=== PATIENT | female | born 1965 | race Caucasian/White ===

== ENCOUNTER 2017-04-11 10:14 | Emergency (ER) | payer BC ==
[~2017-04-11] VITALS: Ht 165.1 cm; Wt 97.5 kg
[2017-04-11 10:20] VITALS: BP 134/83; PULSE 73; RESP 18; TEMP 97; O2SAT 98
--- NOTE | 2017-04-11 10:25 | NUR ---
Patient to ER bed 8 to gown for evaluation. Side rails up. Report given to Devorah RAUSCH.
--- NOTE | 2017-04-11 10:33 | NUR ---
Received Pt in bed 8. Pt c/o of dizziness and nauseous x3 days, vomiting x1. Pt stated she has a history of vertigo but states this is much worst. Pt states when the room is spinning when she has her eyes closed, unable to balance herself, sweating, ringing in her ears. Pt did not take any medication to treat symptoms.
--- NOTE | 2017-04-11 10:50 | NUR ---
Dr. Montgomery at the bedside evaluating Pt. Currently awaiting new orders.
[2017-04-11] MEDS ORDERED: ONDANSETRON HCL 4 MG/2 ML VIAL IVP ONE (11:00)
[2017-04-11] MEDS ORDERED: LORazepam 2 MG/ML VIAL (FOR ER USE) IVP ONE (11:00)
[2017-04-11] MEDS ORDERED: MECLIZINE HCL 25 MG TABLET (ANITVERT) PO ONE (11:00)
[2017-04-11 11:32] LABS: BASOPHILS % (AUTO) 0.3 % (0.0-2.0); EOSINOPHILS # (AUTO) 0.1 K/uL (0.0-0.4); EOSINOPHILS % (AUTO) 0.8 % (0.0-4.0); HEMATOCRIT 45.2 % (36-48); HEMOGLOBIN 14.2 g/dL (12.0-16.0); LYMPHOCYTES # (AUTO) 3.6 K/uL (1.0-5.5); LYMPHOCYTES % (AUTO) 38.4 % (20.5-51.5); MEAN CORPUSCULAR HEMOGLOBIN 28 pg (27-31); MEAN CORPUSCULAR HGB CONC 31 % (32-36); MEAN CORPUSCULAR VOLUME 88 fL (79.0-98.0); MONOCYTES # (AUTO) 0.7 K/uL (0.0-1.0); MONOCYTES % (AUTO) 7.1 % (1.7-9.3); NEUTROPHILS % (AUTO) 53.4 % (40.0-70.0); PLATELET COUNT (AUTO) 251 K/uL (130-430); RED BLOOD CELL COUNT(AUTO) 5.16 MIL/uL (4.2-6.2); RED CELL DISTRIBUTION WIDTH 13.1 % (9.0-15.0); WHITE BLOOD COUNT (AUTO) 9.4 K/uL (4.8-10.8)
[2017-04-11 11:37] LABS: ANION GAP 4 (5-15); CALCIUM 10.2 mg/dL (8.4-11.0); CHLORIDE 104 mmol/L (98-107); CREATININE 0.93 mg/dL (0.55-1.30); GLUCOSE 124 mg/dL (70-99); POTASSIUM 4.1 mmol/L (3.5-5.1); SODIUM SERUM 141 mmol/L (136-145); UREA NITROGEN, BLOOD 11 mg/dL (8-21)
--- NOTE | 2017-04-11 11:38 | NUR ---
Pt transported to radiology via [facility]
[2017-04-11 11:44] LABS: PROTHROMBIN TIME 10.6 SECS (9.5-12.5)
[2017-04-11 11:47] LABS: GFR AFRICAN AMERICAN 81 mL/min (>90)
[2017-04-11 11:54] LABS: ALANINE AMINOTRANSFERASE 34 U/L (12-78); ALBUMIN 4.1 g/dL (3.4-4.8); ALCOHOL, BLOOD < 3 mg/dL (<10); ASPARTATE AMINOTRANSFERASE 20 U/L (10-37); FREE T4 (FREE THYROXINE) 0.7 ng/dL (0.6-1.6); TOTAL BILIRUBIN 0.4 mg/dL (0.0-1.0); TOTAL PROTEIN, SERUM 8.2 g/dL (6.4-8.3)
--- NOTE | 2017-04-11 12:28 | NUR ---
Pt awake. Pt stated dizziness is much better after medication adminstrationg. Pt requesting to use the bathroom. Assisted Pt to the bathroom via wheelchair. Informed Pt to push the call light if Pt needs assistance with anything. Pt verbalized understading.
[2017-04-11 12:46] LABS: BILIRUBIN,URINE NEGATIVE (NEGATIVE); BLOOD, URINE NEGATIVE (NEGATIVE); CLARITY/URINE CLEAR (CLEAR); COLOR,URINE YELLOW (YELLOW); GLUCOSE,URINE NEGATIVE (NEGATIVE); KETONES,URINE NEGATIVE (NEGATIVE); LEUKOCYTE ESTERASE ,URINE NEGATIVE (NEGATIVE); NITRITE, URINE NEGATIVE (NEGATIVE); PH,URINE 6.5 (5.0-8.0); PROTEIN URINE NEGATIVE (NEGATIVE); UROBILINOGEN,URINE 0.2 (0.2-1.0)
[2017-04-11 12:59] LABS: BARBITURATE, URINE NEGATIVE (NEG <=200); BENZODIAZEPINE, URINE NEGATIVE (NEG <=150); CANNABINOID, URINE NEGATIVE (NEG <=50); COCAINE, URINE NEGATIVE (NEG <=150); METHAMPHETAMINES SCREEN,URINE NEGATIVE (NEG <=500); OPIATE, URINE NEGATIVE (NEG <=100); PHENCYCLIDINE SCREEN,URINE NEGATIVE (NEG <=25); UR TRICYCLIC ANTIDEPRESSANTS NEGATIVE (NEG <=300); URINE AMPHETAMINE NEGATIVE (NEG <=500); URINE METHADONE NEGATIVE (NEG <=200); URINE OXYCODONE SCREEN NEGATIVE (NEG <=100); URINE PROPOXYPHENE SCREEN NEGATIVE (NEG <=300)
--- NOTE | 2017-04-11 13:14 | NUR ---
Pt resting in bed. Pt stated she still have some dizziness. Informed Pt to push the call light if pt needs assistance with anything. Pt verbalized understanding. Will continue to monitor.
--- NOTE | 2017-04-11 13:30 | NUR ---
Pt on stable condition, radiology at bedside, VS WNL.
[2017-04-11 14:02] VITALS: BP 137/64; PULSE 76; RESP 16; TEMP 98.4; O2SAT 99
--- NOTE | 2017-04-11 14:06 | NUR ---
Patient given written and verbal discharge instructions and verbalizes understanding. ER MD discussed with patient the results and treatment provided. Patient in stable condition. ID arm band removed. IV catheter removed intact and dressing applied, no active bleeding. Rx of Zofran and Antivert given. Patient educated on pain management and to follow up with PMD. Pain Scale 0 . Opportunity for questions provided and answered.
== END 2017-04-11 14:02 | disposition home or self-care (01) ==
LOC: SED 10:14
DX: R42 Dizziness and giddiness (principal); Z91.048 Other nonmedicinal substance allergy status; Z98.51 Tubal ligation status
CPT/HCPCS: 36415; 70450; 71010; 80053; 80307; 81003; 83605; 83880; 84439; 84484; 85025; 85610; 87040; 93005; 96374; 96375; 99285; G0482; J2060; J2405; J8597

== ENCOUNTER 2022-04-27 17:32 | Emergency (ER) | payer BC, OTHER ==
[~2022-04-27] VITALS: Ht 165.1 cm; Wt 98.4 kg
[2022-04-27 18:35] VITALS: BP_SYST 142
--- NOTE | 2022-04-27 18:47 | NUR ---
Patient triaged and placed in ER waiting room awaiting available bed in main ED. MD aware of MSE needs.
--- NOTE | 2022-04-27 20:21 | NUR ---
Patient ambulatory to bed 3 for evalution and treatment
[2022-04-27] MEDS ORDERED: HYDROcodone/ACETAMIN 5-325 MG TAB (NORCO/ VICODIN) PO ONE (21:15)
[2022-04-27] MEDS ORDERED: HYDR-3917 PO (21:43)
--- NOTE | 2022-04-27 22:30 | NUR ---
SUGAR TONG splint applied to right upper extremity per Doctor's request. Doctor reevaluated placement. +motor, +sensory, and + pulses to extremity present.
[2022-04-27 22:40] VITALS: BP_SYST 139
--- NOTE | 2022-04-27 22:40 | NUR ---
Patient given written and verbal discharge instructions and verbalizes understanding. ER MD discussed with patient the results and treatment provided. Patient in stable condition. Rx of [place] given. Patient educated on pain management and to follow up with PMD. Opportunity for questions provided and answered.
== END 2022-04-27 22:40 | disposition home or self-care (01) ==
LOC: SED 17:32
DX: M25.532 Pain in left wrist (principal); M25.531 Pain in right wrist; I10 Essential (primary) hypertension; Z91.048 Other nonmedicinal substance allergy status
CPT/HCPCS: 99283

== ENCOUNTER 2022-12-27 15:01 | Emergency (ER) | payer OTHER ==
[~2022-12-27] VITALS: Ht 167.6 cm; Wt 83.9 kg
[~2022-12-27 15:01] MED LIST: HYDR-3917 PO
[2022-12-27 15:05] VITALS: BP_SYST 139
--- NOTE | 2022-12-27 15:05 | NUR ---
Placed in room 08 . Placed on desk monitor, blood pressure machine and pulse oximeter. To gown for exam. Side rails up. Report given to SHALOM WARREN AND MAGALIS OCONNOR.
--- NOTE | 2022-12-27 15:06 | NUR ---
ER DR. RODRIGUEZ EXAMINING PT
--- NOTE | 2022-12-27 15:15 | NUR ---
PT CAME IN FROM HOME C/O COUGH, CONGESTION AND BODY ACHES FOR SEVERAL DAYS. PT IS AMBULATORY, AAOX4, VSS
[2022-12-27] MEDS ORDERED: KETOROLAC TROMETHAMINE 60 MG/2 ML VIAL IM ONE ×2 (15:30→17:40)
[2022-12-27] MEDS ORDERED: predniSONE 20 MG TABLET PO ONE (15:30)
[2022-12-27] MEDS ORDERED: IPRATROPIUM BROM 0.5 MG/2.5 ML VIAL.NEB (ATROVENT) INH ONE (15:30)
[2022-12-27] MEDS ORDERED: ALBUTEROL SULFATE 0.083% 2.5 MG/3 ML VIAL.NEB INH ONE (15:30)
[2022-12-27] MEDS ORDERED: guaiFENesin/DEXTROMETHORPHAN 10 ML UDC PO ONE (15:30)
[2022-12-27] MEDS ORDERED: BENZONATATE 100 MG CAPSULE (TESSALON) PO ONE (16:15)
[2022-12-27] MEDS ORDERED: GUAI5SYR PO (17:40)
[2022-12-27] MEDS ORDERED: PRED20TA PO (17:40)
[2022-12-27] MEDS ORDERED: DICL75TA5 PO (17:40)
[2022-12-27] MEDS ORDERED: predniSONE 20 MG TABLET ONE (17:40)
--- NOTE | 2022-12-27 17:59 | NUR ---
Patient given written and verbal discharge instructions and verbalizes understanding. ER MD discussed with patient the results and treatment provided. Patient in stable condition. ID arm band removed. IV catheter removed intact and dressing applied, no active bleeding. Rx of [place], ROBOTUSSIN, DICFLONIAC given. Patient educated on pain management and to follow up with PMD. Opportunity for questions provided and answered. Medication side effect fact sheet provided.
== END 2022-12-27 18:20 | disposition home or self-care (01) ==
LOC: SED 15:01
DX: J44.1 Chronic obstructive pulmonary disease with (acute) exacerbation (principal); R05.9 Cough, unspecified; R09.81 Nasal congestion; R07.89 Other chest pain; I10 Essential (primary) hypertension; Z20.822 Contact with and (suspected) exposure to COVID-19
CPT/HCPCS: 87420; 36415; 93005; 71045; 94640; 94760; 99283; 96372; 87804 ×2; 87426; J7512; J1885; J7613